=== PATIENT | male | born 1950 | race Caucasian/White ===

== ENCOUNTER → 2024-11-19 13:09 | Outpatient (REF) | payer BC, SELFPAY | LOC: MRI 13:09 | PROVIDERS: ATTENDING PHYSICIAN Pain Medicine Interventional Pain Medicine; FAMILY PHYSICIAN Family Medicine | DX: M54.12 Radiculopathy, cervical region (principal); Z95.0 Presence of cardiac pacemaker | CPT/HCPCS: 71046; 72141 ==